=== PATIENT | female | born 1995 | race Caucasian/White ===

== ENCOUNTER → 2016-04-14 | Outpatient (CLI) | payer MEDICAID ==
[~2016-04-14] MED LIST: NAPROSYN 500MG500 MG PO
[2016-04-18 10:34] LABS: Neisseria gonorrhoeae, NAA Negative (Negative)
== END ==
LOC: LAB 15:44
PROVIDERS: Nurse Practitioner Obstetrics & Gynecology
DX: Z72.51 High risk heterosexual behavior (principal)

== ENCOUNTER → 2016-09-29 | Outpatient (CLI) | payer MEDICAID ==
[2016-09-29 16:40] LABS: HEMOGLOBIN 13.7 g/dL (12.2-16.2); LYMPH # 3.9 K/mm3 (0.7-4.5); LYMPH % 33.5 % (10-50.0)
== END ==
LOC: LAB 16:14
PROVIDERS: Obstetrics & Gynecology
DX: N93.8 Other specified abnormal uterine and vaginal bleeding (principal)

== ENCOUNTER 2017-02-02 14:27 | Emergency (ER) | payer MEDICAID ==
[~2017-02-02] VITALS: Ht 160 cm; Wt 51.3 kg
--- OUTSIDE RECORDS SUMMARY | 2017-02-02 14:34 | External Medical Summary Rpt | CCD ---
Author Author [facility] Organization [employer] Address Unknown Phone Unavailable Purpose Continuity of Care Document - through 2016
--- OUTSIDE RECORDS SUMMARY | 2017-02-02 14:34 | External Medical Summary Rpt | CCD ---
Demographics Preferred Language Danish Marital Status Unknown Alevism Affiliation Unknown Race Unknown Ethnic Group Unknown Author Author , CORWIN OLIVIA Address Unknown Phone Immunization No patient found.
--- OUTSIDE RECORDS SUMMARY | 2017-02-02 14:34 | External Medical Summary Rpt | CCD ---
Demographics Preferred Language Pashto Marital Status Unknown Orthodoxy Affiliation Unknown Race Unknown Ethnic Group Unknown Author Author , CORWIN OLIVIA Address Unknown Phone Immunization No patient found.
--- OUTSIDE RECORDS SUMMARY | 2017-02-02 14:34 | External Medical Summary Rpt | CCD ---
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 Phone Jose Yepez MD, Unavailable Unavailable Jose Yepez MD Purpose Continuity of Care Document - 02-09-2013 through 2016 Problems Code Diagnosis DOS Provider Status 922.1 922.1 02-09-2013 [place]um [facility] Allergies, Adverse Reactions, Alerts Type Allergy to substance Adverse Reaction to Substance Substance Reaction Severity INGREDIENT: NO KNOWN Unknown Unknown - NO KNOWN DRUG ALLERGY Results Labs Lab Lab Date Result Refere Interp Status Commen Order Detail nces retati t Range on B-HCG Ur Ql (02-09-2013 16:28) B-HCG 12-18-2 NEGATIV NEG complet Ur Ql 013 E ed 16:28 URINALYSIS/COMPLETE (02-09-2013 16:28) URINE 12-18-2 YELLOW YELLOW complet COLOR 013 ed 16:28 URINE 12-18-2 Sl CLEAR complet APPEARA 013 Cloudy ed NCE 16:28 URINE 12-18-2 NEGATIV NEG complet GLUCOSE 013 E ed - 16:28 DIPSTIC K URINE 12-18-2 NEGATIV NEG complet BILIRUB 013 E ed IN - 16:28 DIPSTIC K URINE 12-18-2 NEGATIV NEG complet KETONE 013 E mg/dL ed 16:28 URINE 12-18-2 Greater 1.005-1 complet SPECIFI 013 than .030 ed C 16:28 or GRAVITY equal to 1.030 URINE 12-18-2 NEGATIV NEG complet BLOOD 013 E ed 16:28 URINE 12-18-2 6.5 UNK 5.0-8.5 complet PH 013 ed 16:28 URINE 12-18-2 NEGATIV NEG complet PROTEIN 013 E mg/dL ed - 16:28 DIPSTIC K URINE 12-18-2 0.2 NEG complet UROBILI 013 E.U./dL ed NOGEN - 16:28 DIPSTIC K URINE 12-18-2 NEGATIV NEG complet NITRATE 013 E ed - 16:28 DIPSTIC K URINE 12-18-2 NEGATIV NEG complet LEUK 013 E ed ESTERAS 16:28 E URINE 12-18-2 OCC 0 complet RBC 013 rbc/hpf ed 16:28 URINE 12-18-2 OCC O complet WBC 013 wbc/hpf ed 16:28 URINE 12-18-2 3-5 0-5 complet SQUAMOU 013 #/hpf ed S CELLS 16:28 URINE 12-18-2 TRACE O complet BACTERI 013 ed A 16:28 URINE 12-18-2 2+ OCC complet MUCUS 013 ed 16:28 Encounters Encounter Start End Date Code Location Performer Type Date Emergency TORI Yepez MD (ER) 3 16:34 3 17:[address] [facility]
--- OUTSIDE RECORDS SUMMARY | 2017-02-02 14:34 | External Medical Summary Rpt | CCD ---
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
[2017-02-02] MEDS ORDERED: BROMFED DM COU118 ML PO (16:04)
--- NOTE | 2017-02-02 16:05 | Urgent Treatment Center Report ---
History of Present Issue Date/Time Seen by Provider 02/02/17 1600 Visit Reason Pt arrived:Walked Presenting Problem:PT C/O COUGH, MON, SORE THROAT X1 WEEK Location if Accident: Onset of symptoms date/time:/ or onset unknown for:MEDICAL HX UNKNOWN Have you (or family members/close friends) recently traveled outside the [place]? N If Yes, where/when: Have you had exposure to infectious disease within the past month? TB? Other? Specify: c/o cough, headache, sore throat since Thursday, 5 days ago. Worse at night. Hasn't taken or tried anything for symptoms. Sister w/ similiar symptoms "she thinks it is her sinuses though". Source patient Exam Limitations no limitations ALLERGIES Coded Allergies: No Known Allergies (02/02/17) History Medical History General CAD? No Angina: No [place]: No Hypertension? No Hyperlipidemia? No CHF? No DVT? No PE? No COPD? No Asthma? No Anemia? No GERD? No Gastric ulcers? No GI Bleed? No Hernia? No Thyroid Problems? No Hypothyroidism? No CVA? No Seizures? No Diabetes? No Renal Insuffiency? No UTI? No Stones? No BPH? No GB Disease: No Nephritic Syndrome? No Asplenia? No Hepatitis? No Sickle Cell Disease? No Arthritis? No Migraines? No Cataracts? No Glaucoma? No MRSA? Yes HIV? No TB? No Anxiety? No Depression? No Cancer? No More? No Immunization HX DT/Tetanus 1-4 YRS Flu NEVER Pneumonia NEVER Surgical Hx Previous Surgery?Y EAR TUBES TONSILLECT Family History Family HX Diabetes Yes CAD No Hypertension No Hyperlipidemia No Cancer No TB No Social History Smoking Hx Smoker: Never Smoker Tobacco: No Alcohol Alcohol: No Review of Systems All Other Systems Reviewed and Negative Constitutional see HPI, denies chills, denies fever Eyes denies drainage ENT nose discharge, nose congestion. denies: ear pain, throat swelling. Respiratory cough (nonprod, worse at night, ), denies shortness of breath, denies wheezing Cardiovascular denies chest pain Gastrointestinal denies no symptoms reported Musculoskeletal denies joint pain Skin denies rash Psychiatric/Neurological headache (mild intermittent) Physical Exam Vital Signs Vital Signs Date Time Temp Pulse Resp B/P Pulse O2 O2 Flow FiO2 Ox Delivery Rate 02/02 1500 98.2 81 20 117/75 99 General Appearance normal appearance, no apparent distress Ear, Nose, Throat normal ENT inspection Neck non-tender, supple Respiratory Status No: respiratory distress, productive cough, non productive cough. Lung Sounds anterior: lungs clear. posterior: lungs clear. bilateral: lungs clear. Cardiovascular regular rate/rhythm, no peripheral edema, no murmur Neurologic alert, oriented x 3 Mental status normal mood/affect Skin normal color, warm/dry Lymphatic no adenopathy Medical Decision Making LABS/Meds/Orders Pt receiving controlled substance in ED? No Departure Departure Time of Disposition 1603 Disposition DC Home or Self Care(routine) Clinical Impression Primary Impression: Upper respiratory virus Condition STABLE Referrals NO REFERRAL IMMEDIATELY for new or worsening symptoms OR no noticeable improvement over the next 48-72 hours. 911 for difficulty breathing or swallowing. Patient Instructions DI for Viral Upper Respiratory Infection -- Adult Additional Instructions * No sign of bacterial infection. Likely viral. Virus can take 7-14 days to run their course * Monitor Temp. Tylenol every 4 hours as needed no more then 5 times a day or 4000mg in 24 hours and/or ibuprofen every 6 hours as needed no more then 3200mg in 24 hours (as long as your primary care doctor has told you that it is ok to take both) for fever/aches/pain. ER if fever no less than 101 despite tylenol and ibuprofen * Encourage fluids, water, gatorade, powerade, pedialyte if /toddler/child * warm salt water gargles * warm fluids * sore throat lozenges * sleep elevated * humidifier/vaporizer * Bromfed may cause drowsiness. Know how it effects you (or your child) before driving, caring for small children, or sending your child to school. No other antihistamines/allergy medications while taking bromfed. Discharge Counseling Counseled pt/family regarding diagnosis, medications/RX, home care, follow up needs Prescriptions Current Visit Scripts D-METHORPHAN HB/P-EPD HCL/BPM (Bromfed Dm Cough Syrup) 10 ML PO QIDP PRN cough #240 ML at 1608
[2017-02-02 16:11] VITALS: BP 117/75
== END 2017-02-02 16:11 | disposition home or self-care (01) ==
LOC: UTC 14:27
DX: J06.9 Acute upper respiratory infection, unspecified (principal)